=== PATIENT | female | born 1960 | race Two or more races ===

== ENCOUNTER 2017-08-11 11:29 | Inpatient (IN) | payer MEDICAID ==
[~2017-08-11] VITALS: Ht 157.5 cm; Wt 65.8 kg
[2017-08-11 12:00] VITALS: BP 207/63
[2017-08-11] MEDS ORDERED: Morphine Sulfate 4mg/ml Inj IVP ONE (12:00)
[2017-08-11 12:04] LABS: BASOPHILS % (AUTO) 1.3 % (0.0-2.0); EOSINOPHILS % (AUTO) 2.7 % (0.0-3.0); HEMATOCRIT 45.9 % (37.0-47.0); LYMPHOCYTES % (AUTO) 31.1 % (20.0-45.0); MEAN CORPUSCULAR VOLUME 92 FL (80-99); MONOCYTES % (AUTO) 5.5 % (1.0-10.0); NEUTROPHILS % (AUTO) 59.4 % (45.0-75.0); PLATELET COUNT 276 K/UL (150-450); RED BLOOD COUNT 4.97 M/UL (4.20-5.40); RED CELL DISTRIBUTION WIDTH 11.7 % (11.6-14.8); WHITE BLOOD COUNT 13.3 K/UL (4.8-10.8)
[2017-08-11 12:11] LABS: ANION GAP 10 mmol/L (5-15); BLOOD UREA NITROGEN 16 mg/dL (7-18); CALCIUM 9.6 MG/DL (8.5-10.1); CARBON DIOXIDE 26 MMOL/L (21-32); CHLORIDE 102 MMOL/L (98-107); CREATININE 0.6 MG/DL (0.55-1.30); POTASSIUM 2.9 MMOL/L (3.5-5.1); SODIUM 138 MMOL/L (136-145)
[2017-08-11 12:15] LABS: INR 0.9 (0.9-1.1)
[2017-08-11 12:17] LABS: ALANINE AMINOTRANSFERASE 30 U/L (12-78); ALBUMIN 3.9 G/DL (3.4-5.0); ALBUMIN/GLOBULIN RATIO 0.8 (1.0-2.7); ALKALINE PHOSPHATASE 115 U/L (46-116); ASPARTATE AMINO TRANSFERASE 23 U/L (15-37); BILIRUBIN,TOTAL 0.3 MG/DL (0.2-1.0)
[2017-08-11 13:00] VITALS: BP 173/60
--- NOTE | 2017-08-11 13:12 | Diagnostic Imaging Report ---
Indication: Altered mental status Technique: Continuous helical CT scanning of the head was performed without intravenous contrast material. Axial and coronal 5 mm sections were generated. Radiation dose was minimized using automated exposure control Dose: Total Dose Length Product - DLP 1369.[address] Dose Index - CTDIvol(s) 70.38 mGy. Comparison: none Findings: The ventricular system is normal in size and configuration. There is no shift of midline structures. No abnormal extra-axial fluid collections are noted. There is no evidence of intracerebral bleeding. No other abnormal high or low density areas are noted within the brain. Impression: Normal CT scan of the head without contrast material. The CT scanner at [facility] is accredited by the [employer] and the scans are performed using protocols designed to limit radiation exposure to as low as reasonably achievable to attain images of sufficient resolution adequate for diagnostic evaluation.
[2017-08-11 13:25] LABS: APPEARANCE,URINE CLEAR; BILIRUBIN, URINE NEGATIVE (NEGATIVE); COLOR,URINE PALE YELLOW; GLUCOSE, URINE (UA) 4+ (NEGATIVE); KETONES,URINE 2+ (NEGATIVE); LEUKOCYTE ESTERASE ,URINE 1+ (NEGATIVE); NITRITE,URINE NEGATIVE (NEGATIVE); PH,URINE 7 (4.5-8.0); PROTEIN,URINE 2+ (NEGATIVE); UROBILINOGEN,URINE NORMAL MG/DL (0.0-1.0)
[2017-08-11 14:00] VITALS: BP 176/58
--- NOTE | 2017-08-11 14:43 | Diagnostic Imaging Report ---
Indication: Abdominal pain, nausea, vomiting Technique: Spiral acquisitions obtained through the abdomen and pelvis. No oral contrast utilized, per emergency room physician request No IV contrast utilized, per emergency room physician request.. Multiplanar reconstructions were generated. Total dose length product 965.95 mGycm. CTDIvol(s) 19.07 mGy. Dose reduction achieved using automated exposure control Comparison: None Findings: There were a few colonic diverticula. No evidence of diverticulitis. The appendix is normal. No small bowel distention. No free or loculated intraperitoneal air or fluid is evident. The distal esophagus, stomach, duodenum are unremarkable. Lack of IV contrast limits assessment of the solid organs. The liver, gallbladder, bile ducts, pancreas, spleen, adrenals are unremarkable. There is mild stranding of the bilateral perinephric fat, fairly symmetrical. No renal or ureteral calculi, hydronephrosis, or hydroureter. No retroperitoneal or mesenteric mass or adenopathy. No pelvic mass or adenopathy. Uterus and adnexal structures appear unremarkable. The included lung bases demonstrate posterior atelectatic changes and possible mild bronchiectasis and interstitial septal thickening. The heart is mildly enlarged. The bones demonstrate degenerative spondylosis changes. Impression: Limited exam, due to lack of oral and IV contrast administration No definite acute process Minimal bilateral basilar pulmonary atelectatic changes, possible mild bronchiectasis and interstitial septal thickening Mild cardiomegaly Degenerative spondylosis incidentally noted The CT scanner at [facility] is accredited by the [employer] and the scans are performed using protocols designed to limit radiation exposure to as low as reasonably achievable to attain images of sufficient resolution adequate for diagnostic evaluation.
[2017-08-11] MEDS ORDERED: FORTAMET500 MG PO (15:05)
[2017-08-11] MEDS ORDERED: GLIPIZIDE10 MG PO (15:05)
[2017-08-11] MEDS ORDERED: BENAZEPRIL HCL5 MG ORAL (15:05)
[2017-08-11] MEDS ORDERED: Labetalol 5mg/ml 20ml vial IV ONE (15:15)
[2017-08-11 15:30] VITALS: BP 158/55
[2017-08-11 16:30] VITALS: BP 162/81
--- NOTE | 2017-08-11 16:44 | Emergency Room Report ---
History of Present Illness General Chief Complaint: Nausea Source: Patient Present Illness HPI Patient presents to the emergency department today complaining of nausea vomiting and dizziness. Patient states that she developed acute onset of dizziness associate nausea vomiting and epigastric discomfort. She denies any fever or chest pain shortness of breath. Symptoms were noted to be highly severe. Patient family: I will wanted patient to write for further evaluation. On arrival patient was actively vomiting. Patient appears weak and since not a very good historian she is very sleepy.No other modifying factors. No other associated signs and symptoms. No other complaints were noted. Allergies: Coded Allergies: No Known Allergies (Unverified , 08/11/17) Patient History Past Medical History: DM, HTN, CAD Past Surgical History: none Pertinent Family History: none Social History: Denies: smoking, alcohol use, drug use Reviewed Nursing Documentation: PMH: Agreed; PSxH: Agreed Nursing Documentation-PMH Past Medical History: No History, Except For Hx Cardiac Problems: Yes - high cholesterol, [place] Hx Hypertension: Yes Hx Diabetes: Yes Review of Systems All Other Systems: negative except mentioned in HPI Physical Exam Vital Signs Date Time Temp Pulse Resp B/P (MAP) Pulse Ox O2 Delivery O2 Flow Rate FiO2 08/11/17 11:05 98.4 69 24 156/116 99 Room Air 98.4 Sp02 EP Interpretation: reviewed, normal General Appearance: normal inspection, well appearing, no apparent distress, alert Head: atraumatic Eyes: bilateral eye normal inspection ENT: normal ENT inspection, hearing grossly normal, normal voice Neck: normal inspection, full range of motion, supple, no bony tend Respiratory: normal inspection, lungs clear, normal breath sounds, no respiratory distress, no retraction, no wheezing Cardiovascular #1: regular rate, rhythm, no edema Gastrointestinal: normal inspection, normal bowel sounds, non tender, soft, no guarding, no hernia Genitourinary: no CVA tenderness Musculoskeletal: normal inspection, back normal, normal range of motion Neurologic: normal inspection, alert, responsive, speech normal Psychiatric: normal inspection, judgement/insight normal, mood/affect normal Skin: normal inspection, normal color, no rash Medical Decision Making Diagnostic Impression: Primary Impression: Vertigo Additional Impressions: Intractable vomiting Intractable abdominal pain ER Course Patient presents to the emergency department today complaining of abdominal pain. Differential considerations include acute pancreatitis, cholecystitis, gastritis, hepatitis, appendicitis just to name a few. Patient's laboratory work up was negative. Patient also complained of intense vertigo. Differential considerations include vertigo, electrolyte abnormality, CVA just to name a few.Given the severity of the patient's presentation I felt this is a highly complex patient. This patient required extensive workup. Patient's laboratory workup was negative. Head CT and abdominal CT were both negative. Patient was given fluids and nausea medication and meclizine. Patient remained vertiginous and wasn't able to ambulate. Therefore felt the patient required admission to the hospital. Case was discussed with Dr. Raul Shah for admission. Labs Test 08/11/17 11:50 08/11/17 13:10 White Blood Count 13.3 K/UL (4.8-10.8) Red Blood Count 4.97 M/UL (4.20-5.40) Hemoglobin 16.0 G/DL (12.0-16.0) Hematocrit 45.9 % (37.0-47.0) Mean Corpuscular Volume 92 FL (80-99) Mean Corpuscular Hemoglobin 32.2 PG (27.0-31.0) Mean Corpuscular Hemoglobin Concent 34.8 G/DL (32.0-36.0) Red Cell Distribution Width 11.7 % (11.6-14.8) Platelet Count 276 K/UL (150-450) Mean Platelet Volume 6.3 FL (6.5-10.1) Neutrophils (%) (Auto) 59.4 % (45.0-75.0) Lymphocytes (%) (Auto) 31.1 % (20.0-45.0) Monocytes (%) (Auto) 5.5 % (1.0-10.0) Eosinophils (%) (Auto) 2.7 % (0.0-3.0) Basophils (%) (Auto) 1.3 % (0.0-2.0) Prothrombin Time 9.8 SEC (9.30-11.50) Prothromb Time International Ratio 0.9 (0.9-1.1) Activated Partial Thromboplast Time 25 SEC (23-33) Sodium Level 138 MMOL/L (136-145) Potassium Level 2.9 MMOL/L (3.5-5.1) Chloride Level 102 MMOL/L (98-107) Carbon Dioxide Level 26 MMOL/L (21-32) Anion Gap 10 mmol/L (5-15) Blood Urea Nitrogen 16 mg/dL (7-18) Creatinine 0.6 MG/DL (0.55-1.30) Estimat Glomerular Filtration Rate > 60 mL/min (>60) Glucose Level 316 MG/DL (74-106) Calcium Level 9.6 MG/DL (8.5-10.1) Total Bilirubin 0.3 MG/DL (0.2-1.0) Aspartate Amino Transf (AST/SGOT) 23 U/L (15-37) Alanine Aminotransferase (ALT/SGPT) 30 U/L (12-78) Alkaline Phosphatase 115 U/L (46-116) Troponin I 0.000 ng/mL (0.000-0.056) Total Protein 8.5 G/DL (6.4-8.2) Albumin 3.9 G/DL (3.4-5.0) Globulin 4.6 g/dL Albumin/Globulin Ratio 0.8 (1.0-2.7) Lipase 73 U/L (73-393) Urine Color Pale yellow Urine Appearance Clear Urine pH 7 (4.5-8.0) Urine Specific [place] 1.010 (1.005-1.035) Urine Protein 2+ (NEGATIVE) Urine Glucose (UA) 4+ (NEGATIVE) Urine Ketones 2+ (NEGATIVE) Urine Occult Blood Negative (NEGATIVE) Urine Nitrite Negative (NEGATIVE) Urine Bilirubin Negative (NEGATIVE) Urine Urobilinogen Normal MG/DL (0.0-1.0) Urine Leukocyte Esterase 1+ (NEGATIVE) Urine RBC 0-2 /HPF (0 - 2) Urine WBC 2-4 /HPF (0 - 2) Urine Squamous Epithelial Cells Few /LPF (NONE/OCC) Urine Bacteria Occasional /HPF (NONE) CT/MRI/US Diagnostic Results CT/MRI/US Diagnostic Results : Imaging Test Ordered: CT head: Negative, CT abdomen and pelvis: Negative Last Vital Signs Date Time Temp Pulse Resp B/P (MAP) Pulse Ox O2 Delivery O2 Flow Rate FiO2 08/11/17 16:30 97.5 83 16 162/81 95 Room Air 97.5 Status: unchanged Disposition: ADMITTED INPATIENT Condition: Serious Referrals: NOT CHOSEN IPA/,REFERRING (PCP) STEW RUSH M.D. Aug 11, 2017 16:44
[2017-08-11] MEDS ORDERED: D5 1/2NS 1,000 ML IV SCH (17:02)
[2017-08-11] MEDS ORDERED: Promethazine HCl 12.5 MG in NS 55 ML IV PRN (17:15)
[2017-08-11] MEDS ORDERED: Morphine Sulfate 2mg/ml Inj IVP PRN (17:15)
[2017-08-11] MEDS ORDERED: Mylanta II UD 30ml ORAL PRN (17:15)
[2017-08-11] MEDS ORDERED: Miralax 17gm pkt ORAL PRN (17:15)
[2017-08-11] MEDS ORDERED: Nitroglycerin Subl 0.4mg tab SL PRN (17:15)
[2017-08-11] MEDS ORDERED: LORazepam Inj 2mg/ml 1ml IV PRN (17:15)
[2017-08-11] MEDS ORDERED: Promethazine HCl 25 MG in NS 55 ML IV PRN (17:30)
[2017-08-11] MEDS ORDERED: Morphine Sulfate 4mg/ml Inj IVP PRN (17:30)
[2017-08-11] MEDS: NS w/KCl 20mEq 1,000 ML IV SCH (17:40)
[2017-08-11] MEDS: NovoLOG Insulin Flexpen SUBQ SCH ×2 (17:42→21:22)
[2017-08-11 20:00] VITALS: BP 161/67
[2017-08-11] MEDS: Heparin 5000 units/ml inj SUBQ SCH (21:20)
[2017-08-12] VITALS (7 sets, daily range): BP systolic 136–186; BP diastolic 63–85
[2017-08-12 06:19] LABS: BASOPHILS % (AUTO) 1.4 % (0.0-2.0); EOSINOPHILS % (AUTO) 1.2 % (0.0-3.0); LYMPHOCYTES % (AUTO) 32.6 % (20.0-45.0); MEAN CORPUSCULAR VOLUME 92 FL (80-99); NEUTROPHILS % (AUTO) 57.9 % (45.0-75.0); PLATELET COUNT 270 K/UL (150-450); RED BLOOD COUNT 4.33 M/UL (4.20-5.40)
[2017-08-12] MEDS: NovoLOG Insulin Flexpen SUBQ SCH ×4 (06:27→21:03)
[2017-08-12] MEDS: NS w/KCl 20mEq 1,000 ML IV SCH ×2 (06:28→21:00)
[2017-08-12 06:30] LABS: PHOSPHORUS 3.9 MG/DL (2.5-4.9)
[2017-08-12 07:14] LABS: ALANINE AMINOTRANSFERASE 22 U/L (12-78); ALBUMIN 3.1 G/DL (3.4-5.0); ALBUMIN/GLOBULIN RATIO 0.8 (1.0-2.7); ALKALINE PHOSPHATASE 79 U/L (46-116); AMYLASE 24 U/L (25-115); ANION GAP 10 mmol/L (5-15); ASPARTATE AMINO TRANSFERASE 18 U/L (15-37); BILIRUBIN,TOTAL 0.4 MG/DL (0.2-1.0); BLOOD UREA NITROGEN 16 mg/dL (7-18); CALCIUM 8.3 MG/DL (8.5-10.1); CARBON DIOXIDE 26 MMOL/L (21-32); CHLORIDE 106 MMOL/L (98-107); CREATININE 0.5 MG/DL (0.55-1.30); POTASSIUM 3.6 MMOL/L (3.5-5.1); SODIUM 142 MMOL/L (136-145)
[2017-08-12] MEDS: Pantoprazole Inj IV SCH (08:26)
[2017-08-12] MEDS: Benazepril 10mg tab ORAL SCH (08:26)
[2017-08-12] MEDS: Heparin 5000 units/ml inj SUBQ SCH ×2 (08:27→21:02)
--- NOTE | 2017-08-12 10:08 | GI Initial Consult Note ---
History of Present Illness General Date patient seen: Aug 12, 2017 Time patient seen: 11:31 Reason for Hospitalization: Nausea Referring physician: KISHA MARTINEZ Reason for Consultation: N/V Present Illness HPI Patient presents to the emergency department today complaining of nausea vomiting and dizziness. Patient states that she developed acute onset of dizziness associate nausea vomiting and epigastric discomfort. She denies any fever or chest pain shortness of breath. Symptoms were noted to be highly severe. Patient family: I will wanted patient to write for further evaluation. On arrival patient was actively vomiting. Patient appears weak and since not a very good historian she is very sleepy.No other modifying factors. No other associated signs and symptoms. No other complaints were noted. GI consulted for N/V. Pt seen, awake A&Ox4 NAD with no active s/sx of N/V/D. C /o of epigastric pain, tender to palpation. All information obtained from medical records. Patient presents today with elevated glucose levels and electrolyte imbalance. No history of endoscopy/colonoscopy. CT AP and Head reviewed, negative. Home Meds Reported Medications Benazepril Hcl (BENAZEPRIL HCL) 5 Mg Tablet, 5 MG ORAL DAILY, TAB 08/11/17 Metformin Hcl (FORTAMET) 500 Mg Tab.er.24, 500 MG PO, TAB 08/11/17 Glipizide (GLIPIZIDE) 10 Mg Tablet, 10 MG PO, TAB 08/11/17 Med list reviewed/reconciled: Yes Allergies: Coded Allergies: No Known Allergies (Unverified , 08/11/17) Patient History History Provided By: Patient, Medical Record Pertinent Family History: diabetes Social History: Denies: smoking, alcohol use, drug use, other Review of Systems All Other Systems: negative except mentioned in HPI Physical Exam Vital Signs Date Time Temp Pulse Resp B/P (MAP) Pulse Ox O2 Delivery O2 Flow Rate FiO2 08/11/17 11:05 98.4 69 24 156/116 99 Room Air 98.4 Sp02 EP Interpretation: reviewed, normal Labs Laboratory Tests Test 08/11/17 11:50 08/11/17 13:10 08/12/17 05:40 White Blood Count 13.3 K/UL (4.8-10.8) H 10.0 K/UL (4.8-10.8) Red Blood Count 4.97 M/UL (4.20-5.40) 4.33 M/UL (4.20-5.40) Hemoglobin 16.0 G/DL (12.0-16.0) 14.0 G/DL (12.0-16.0) Hematocrit 45.9 % (37.0-47.0) 40.0 % (37.0-47.0) Mean Corpuscular Volume 92 FL (80-99) 92 FL (80-99) Mean Corpuscular Hemoglobin 32.2 PG (27.0-31.0) H 32.3 PG (27.0-31.0) H Mean Corpuscular Hemoglobin Concent 34.8 G/DL (32.0-36.0) 35.0 G/DL (32.0-36.0) Red Cell Distribution Width 11.7 % (11.6-14.8) 12.0 % (11.6-14.8) Platelet Count 276 K/UL (150-450) 270 K/UL (150-450) Mean Platelet Volume 6.3 FL (6.5-10.1) L 6.4 FL (6.5-10.1) L Neutrophils (%) (Auto) 59.4 % (45.0-75.0) 57.9 % (45.0-75.0) Lymphocytes (%) (Auto) 31.1 % (20.0-45.0) 32.6 % (20.0-45.0) Monocytes (%) (Auto) 5.5 % (1.0-10.0) 7.0 % (1.0-10.0) Eosinophils (%) (Auto) 2.7 % (0.0-3.0) 1.2 % (0.0-3.0) Basophils (%) (Auto) 1.3 % (0.0-2.0) 1.4 % (0.0-2.0) Prothrombin Time 9.8 SEC (9.30-11.50) Prothromb Time International Ratio 0.9 (0.9-1.1) Activated Partial Thromboplast Time 25 SEC (23-33) 25 SEC (23-33) Sodium Level 138 MMOL/L (136-145) 142 MMOL/L (136-145) Potassium Level 2.9 MMOL/L (3.5-5.1) L 3.6 MMOL/L (3.5-5.1) Chloride Level 102 MMOL/L (98-107) 106 MMOL/L (98-107) Carbon Dioxide Level 26 MMOL/L (21-32) 26 MMOL/L (21-32) Anion Gap 10 mmol/L (5-15) 10 mmol/L (5-15) Blood Urea Nitrogen 16 mg/dL (7-18) 16 mg/dL (7-18) Creatinine 0.6 MG/DL (0.55-1.30) 0.5 MG/DL (0.55-1.30) L Estimat Glomerular Filtration Rate > 60 mL/min (>60) > 60 mL/min (>60) Glucose Level 316 MG/DL (74-106) H 126 MG/DL (74-106) #H Calcium Level 9.6 MG/DL (8.5-10.1) 8.3 MG/DL (8.5-10.1) L Total Bilirubin 0.3 MG/DL (0.2-1.0) 0.4 MG/DL (0.2-1.0) Aspartate Amino Transf (AST/SGOT) 23 U/L (15-37) 18 U/L (15-37) Alanine Aminotransferase (ALT/SGPT) 30 U/L (12-78) 22 U/L (12-78) Alkaline Phosphatase 115 U/L (46-116) 79 U/L (46-116) Troponin I 0.000 ng/mL (0.000-0.056) Total Protein 8.5 G/DL (6.4-8.2) H 7.0 G/DL (6.4-8.2) Albumin 3.9 G/DL (3.4-5.0) 3.1 G/DL (3.4-5.0) L Globulin 4.6 g/dL 3.9 g/dL Albumin/Globulin Ratio 0.8 (1.0-2.7) L 0.8 (1.0-2.7) L Lipase 73 U/L (73-393) 46 U/L (73-393) L Urine Color Pale yellow Urine Appearance Clear Urine pH 7 (4.5-8.0) Urine Specific [place] 1.010 (1.005-1.035) Urine Protein 2+ (NEGATIVE) H Urine Glucose (UA) 4+ (NEGATIVE) H Urine Ketones 2+ (NEGATIVE) H Urine Occult Blood Negative (NEGATIVE) Urine Nitrite Negative (NEGATIVE) Urine Bilirubin Negative (NEGATIVE) Urine Urobilinogen Normal MG/DL (0.0-1.0) Urine Leukocyte Esterase 1+ (NEGATIVE) H Urine RBC 0-2 /HPF (0 - 2) Urine WBC 2-4 /HPF (0 - 2) Urine Squamous Epithelial Cells Few /LPF (NONE/OCC) Urine Bacteria Occasional /HPF (NONE) Phosphorus Level 3.9 MG/DL (2.5-4.9) Magnesium Level 1.7 MG/DL (1.8-2.4) L Amylase Level 24 U/L (25-115) L General Appearance: well appearing, no apparent distress, alert, obese Head: normocephalic EENT: PERRL/EOMI, normal ENT inspection Neck: supple Respiratory: normal breath sounds, no respiratory distress Cardiovascular: normal rate Gastrointestinal: normal inspection, non tender, soft, normal bowel sounds, non -distended Rectal: deferred Genitourinary: no CVA tenderness Musculoskeletal: normal inspection, back normal Neurologic: normal inspection, alert, oriented x3, responsive Psychiatric: normal inspection, judgement/insight normal, memory normal Skin: normal inspection, normal color, no rash, warm/dry, palpation normal, well hydrated Lymphatic: normal inspection, no adenopathy Current Medications Current Medications Medications (Trade) Dose Ordered Sig/David Route PRN Reason Start Time Stop Time Status Last Admin Dose Admin Acetaminophen (Tylenol) 650 mg Q6H PRN ORAL Mild Pain/Temp > 100.5 08/11/17 16:30 09/10/17 16:29 Al Hydroxide/Mg Hydroxide (Mylanta II) 30 ml Q6H PRN ORAL dyspepsia 08/11/17 17:15 09/10/17 17:14 Benazepril HCl (Lotensin) 5 mg DAILY ORAL 08/12/17 09:00 09/11/17 08:59 08/12/17 08:26 Dextrose (Dextrose 50%) 25 ml STAT PRN IV Hypoglycemia btwn 60-69 08/11/17 16:30 09/10/17 16:29 Dextrose (Dextrose 50%) 50 ml STAT PRN IV Hypoglycemia BS<60 08/11/17 16:30 09/10/17 16:29 Diphenhydramine HCl (Benadryl) 25 mg Q6H PRN ORAL Itching/Pruritis 08/11/17 17:15 09/10/17 17:14 Heparin Sodium (Porcine) (Heparin 5000 units/ml) 5,000 units EVERY 12 HOURS SUBQ 08/11/17 21:00 09/10/17 20:59 08/12/17 08:27 Insulin Aspart (NovoLOG) BEFORE MEALS AND HS SUBQ 08/11/17 17:00 09/10/17 16:59 08/12/17 06:27 Lorazepam (Ativan 2mg/ml 1ml) 1 mg Q4H PRN IV agitation 08/11/17 17:15 08/18/17 17:14 Morphine Sulfate (Morphine Sulfate) 2 mg Q4H PRN IVP severe Pain (Pain Scale 7-10) 08/11/17 17:30 08/18/17 17:14 08/11/17 17:40 Nitroglycerin (Ntg) 0.4 mg Q5M X 3 DOSES PRN SL Prn Chest Pain 08/11/17 17:15 09/10/17 17:14 Ondansetron HCl (Zofran) 4 mg Q6H PRN IVP Nausea & Vomiting 08/11/17 17:15 09/10/17 17:14 08/12/17 06:35 Pantoprazole (Protonix) 40 mg DAILY IV 08/12/17 09:00 09/11/17 08:59 08/12/17 08:26 Polyethylene Glycol (Miralax) 17 gm HSPRN PRN ORAL Constipation 08/11/17 17:15 09/10/17 17:14 Promethazine HCl 25 mg/Sodium Chloride 56 ml @ 110 mls/hr Q6H PRN IV N/V UNRELIEVED BY IV ZOFRAN 08/11/17 17:30 09/10/17 17:29 Sodium Chloride 1,000 ml @ 75 mls/hr [id number] IV 08/11/17 17:30 09/10/17 17:29 08/12/17 06:28 Temazepam (Restoril) 15 mg HSPRN PRN ORAL Insomnia 08/11/17 17:15 08/18/17 17:14 GI: Plan Problems: (1) Intractable abdominal pain (2) Intractable vomiting (3) Vertigo Plan CT head and AP reviewed >> negative ?gastroparesis 2/2 DM >> check HgA1C pending abdominal U/S zofran prn, Phenergan for persistent vomiting consider meclizine if vertigo persists CLD, adv as tolerated electrolyte replacement ppi fu labs outpatient GI procedures Discussed with Dr. Thompson. Thank you for this patient referral, we will follow. Estefani Douglas N.P. Aug 12, 2017 10:08
[2017-08-12] MEDS ORDERED: Meclizine 25mg tab ORAL PRN (11:30)
--- NOTE | 2017-08-12 14:44 | Diagnostic Imaging Report ---
Indication: Nausea, vomiting, epigastric pain Technique: Hunter-scale and duplex images of the upper abdomen were obtained Comparison: none Findings: Gallbladder is unremarkable, without stones, wall thickening, nor pericholecystic fluid. Sonographic Dhillon's sign is negative. Common bile duct measures 5 mm in diameter. No intrahepatic biliary ductal dilatation. Liver demonstrates normal echogenicity, no focal abnormality. Portal vein and hepatic veins are patent. Pancreas is unremarkable. Spleen is unremarkable. Left kidney measures 10.7 cm in length. Right kidney measures 10 cm length. Both kidneys demonstrate normal echogenicity. There is no hydronephrosis. There are bilateral renal cysts . Non-aneurysmal abdominal aorta . Impression: No acute or significant abnormality. Negative for gallstones or dilated ducts Incidental finding of bilateral renal cysts
--- NOTE | 2017-08-12 18:34 | History & Physical ---
History and Physical History & Physicial Dictated for Int Med-Dr Shah no. [id number] BEATRIZ MONGE Aug 12, 2017 18:34
--- NOTE | 2017-08-12 23:15 | History and Physical Report ---
DATE OF ADMISSION: 08/12/2017 CHIEF COMPLAINT: The patient is a 56-year-old female, who presents with a chief complaint of dizziness, nausea, and vomiting. HISTORY OF PRESENT ILLNESS: The patient states she was cooking yesterday. The patient began to feel extremely dizzy. The patient had intractable nausea and vomiting. The patient was also experiencing epigastric pain. The patient presented to [place] emergency room. The patient was admitted for intractable nausea and vomiting. PAST MEDICAL HISTORY: Significant for, 1. Type 2 diabetes. 2. Hypertension. PAST SURGICAL HISTORY: Significant for section. CURRENT MEDICATIONS: 1. Benazepril 10 mg one tablet p.o. daily. 2. Glipizide 10 mg p.o. daily. 3. Metformin 500 mg p.o. twice daily. ALLERGIES: No known drug allergies. 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 The patient denies tobacco or alcohol use. REVIEW OF SYSTEMS: CONSTITUTIONAL: The patient denies weight loss or weight gain. The patient denies fevers or chills. HEENT: The patient denies ear or throat pain. The patient denies headache. CARDIOVASCULAR: The patient denies palpitations or chest pain. CHEST: The patient denies wheeze or shortness of breath. ABDOMEN: The patient complains of epigastric pain. The patient complains of nausea with vomiting. The patient denies diarrhea or constipation. GENITOURINARY: The patient denies dysuria or increased frequency of urination. NEUROMUSCULAR: The patient denies seizures or generalized weakness. PHYSICAL EXAMINATION: VITAL SIGNS: Temperature 98.2, respirations 19, pulse 84, and blood pressure 146/63. GENERAL: The patient is a well-developed and well-nourished female, in no apparent distress. HEENT: Eyes, pupils equal and responsive to light and accommodation. Extraocular movements are intact. NECK: Supple without lymphadenopathy. CHEST: Lungs are clear to auscultation bilaterally without wheezes or rales. CARDIOVASCULAR: Regular rhythm and rate. S1 and S2 are normal without murmurs, rubs, or gallops. ABDOMEN: Soft, nontender, and nondistended. Positive bowel sounds. No evidence of hepatosplenomegaly. Currently, no rebound or guarding noted. EXTREMITIES: Negative for clubbing, cyanosis, or edema. RECTAL/GENITAL: Refused. NEUROLOGIC: Cranial nerves II through XII are grossly intact without focal deficits. Motor strength is 5/5 bilaterally. Deep tendon reflexes are 2+ plantar. LABORATORY STUDIES: WBC 13.3, hemoglobin 16.3, hematocrit 45.9, and platelets 276,000. Sodium 138, potassium decreased to 2.9, chloride 102, CO2 26, BUN 16, creatinine 0.6, and glucose 316. A CT scan of the brain was reported as no acute disease. A CT scan of the abdomen was reported as no acute disease. ASSESSMENT: This is a 56-year-old female. 1. Epigastric pain. 2. Nausea with vomiting. 3. Vertigo. 4. Diabetes type 2. 5. Hypertension. 6. Hypokalemia. 7. Leukocytosis. TREATMENT: 1. Epigastric pain. A Gastroenterology consultation has been obtained with Dr. Evert Thompson. We will follow recommendations of Gastroenterology. 2. Nausea with vomiting. This has resolved with Zofran. As above, a Gastroenterology consultation has been obtained with Dr. Evert Thompson. 3. Vertigo. This is probably secondary to nausea and vomiting as above. 4. Diabetes type 2. The patient has been started on a NovoLog sliding scale. 5. Hypertension. Continue benazepril as above. Clonidine will be added p.r.n. for systolic greater than 150 and diastolic greater than 100. 6. Hypokalemia. The patient has received potassium supplementation in the emergency room. 7. Leukocytosis. Romain Cat M.D. DR: OLGA JOB#: [id number] CC:
[2017-08-13] VITALS: BP 148/84
[2017-08-13 04:59] LABS: BASOPHILS % (AUTO) 1.7 % (0.0-2.0); EOSINOPHILS % (AUTO) 2.5 % (0.0-3.0); HEMATOCRIT 39.2 % (37.0-47.0); HEMOGLOBIN 13.5 G/DL (12.0-16.0); MEAN CORPUSCULAR VOLUME 93 FL (80-99); MONOCYTES % (AUTO) 6.8 % (1.0-10.0); PLATELET COUNT 256 K/UL (150-450); RED BLOOD COUNT 4.23 M/UL (4.20-5.40); WHITE BLOOD COUNT 7.5 K/UL (4.8-10.8)
[2017-08-13 05:11] LABS: ANION GAP 7 mmol/L (5-15); BLOOD UREA NITROGEN 9 mg/dL (7-18); CALCIUM 8.4 MG/DL (8.5-10.1); CARBON DIOXIDE 26 MMOL/L (21-32); CHLORIDE 108 MMOL/L (98-107); CREATININE 0.5 MG/DL (0.55-1.30); POTASSIUM 3.6 MMOL/L (3.5-5.1); SODIUM 141 MMOL/L (136-145)
[2017-08-13] MEDS: NovoLOG Insulin Flexpen SUBQ SCH ×2 (05:53→12:07)
[2017-08-13 08:43] VITALS: BP_SYST 154; BP_SYST 164; BP_DIAS 83
[2017-08-13] MEDS: Pantoprazole Inj IV SCH (09:04)
[2017-08-13] MEDS: NS w/KCl 20mEq 1,000 ML IV SCH (09:05)
[2017-08-13] MEDS: Benazepril 10mg tab ORAL SCH (09:06)
[2017-08-13] MEDS: Heparin 5000 units/ml inj SUBQ SCH (09:06)
--- NOTE | 2017-08-13 09:49 | GI Progress Note ---
Assessment/Plan Problems: (1) Gastroparesis ICD Codes: K31.84 - Gastroparesis SNOMED: 798608172 (2) Intractable abdominal pain ICD Codes: R10.9 - Unspecified abdominal pain SNOMED: 19822035, 471470613 (3) Intractable vomiting ICD Codes: R11.10 - Vomiting, unspecified SNOMED: 288930187, 517985396 (4) Vertigo ICD Codes: R42 - Dizziness and giddiness SNOMED: 208204082, 384804604 Status: doing well, stable Status Narrative Discussed with Dr. Thompson. Assessment/Plan CT head and AP reviewed >> negative ?gastroparesis 2/2 DM >> check HgA1C 10.2 pending abdominal U/S >> negative adv to ADA diet, okay for DC per GI standpoint if tolerates lunch DM management zofran prn, Phenergan for persistent vomiting consider meclizine if vertigo persists electrolyte replacement ppi fu labs outpatient GI procedures Subjective Subjective tolerated FLD feels normal wants to be discharged Objective Last 24 Hour Vital Signs Date Time Temp Pulse Resp B/P (MAP) Pulse Ox O2 Delivery O2 Flow Rate FiO2 08/13/17 09:06 154/83 08/13/17 08:43 98.9 69 19 154/83 96 Room Air 98.9 08/13/17 04:22 180/82 08/13/17 04:00 98.0 66 19 95 Room Air 98.0 08/13/17 00:00 98.4 72 19 148/84 96 Room Air 98.4 08/12/17 23:01 141/74 08/12/17 20:00 Room Air 08/12/17 20:00 99.1 69 19 186/85 96 Room Air 99.1 08/12/17 19:04 186/85 08/12/17 16:00 99.5 71 21 166/74 99 Room Air 99.5 08/12/17 11:56 99.5 70 20 136/69 95 Room Air 99.5 Intake and Output 08/12/17 08/13/17 19:00 07:00 Intake Total 1320 ml 150 ml Balance 1320 ml 150 ml Intake Oral 720 ml IV Total 600 ml 150 ml # Voids 1 1 Laboratory Tests Test 08/13/17 04:05 White Blood Count 7.5 K/UL (4.8-10.8) Red Blood Count 4.23 M/UL (4.20-5.40) Hemoglobin 13.5 G/DL (12.0-16.0) Hematocrit 39.2 % (37.0-47.0) Mean Corpuscular Volume 93 FL (80-99) Mean Corpuscular Hemoglobin 31.9 PG (27.0-31.0) H Mean Corpuscular Hemoglobin Concent 34.4 G/DL (32.0-36.0) Red Cell Distribution Width 12.0 % (11.6-14.8) Platelet Count 256 K/UL (150-450) Mean Platelet Volume 6.3 FL (6.5-10.1) L Neutrophils (%) (Auto) 40.0 % (45.0-75.0) L Lymphocytes (%) (Auto) 49.0 % (20.0-45.0) H Monocytes (%) (Auto) 6.8 % (1.0-10.0) Eosinophils (%) (Auto) 2.5 % (0.0-3.0) Basophils (%) (Auto) 1.7 % (0.0-2.0) Sodium Level 141 MMOL/L (136-145) Potassium Level 3.6 MMOL/L (3.5-5.1) Chloride Level 108 MMOL/L (98-107) H Carbon Dioxide Level 26 MMOL/L (21-32) Anion Gap 7 mmol/L (5-15) Blood Urea Nitrogen 9 mg/dL (7-18) Creatinine 0.5 MG/DL (0.55-1.30) L Estimat Glomerular Filtration Rate > 60 mL/min (>60) Glucose Level 126 MG/DL (74-106) H Hemoglobin A1c 10.2 % (4.3-6.0) H Calcium Level 8.4 MG/DL (8.5-10.1) L Magnesium Level 1.8 MG/DL (1.8-2.4) Height (Feet): 5 Height (Inches): 2.00 Weight (Pounds): 145 General Appearance: WD/WN, no apparent distress, alert Cardiovascular: normal rate Respiratory/Chest: normal breath sounds, no respiratory distress Abdominal Exam: normal bowel sounds, non tender, soft Extremities: normal range of motion, non-tender Douglas,Estefani Valentin N.P. Aug 13, 2017 09:49
[2017-08-13 12:00] VITALS: BP 157/79
--- NOTE | 2017-08-13 18:01 | Internal Med Progress Note ---
Subjective Date of Service: Aug 13, 2017 Physician Name Romain Monge Attending Physician Raul Shah MD Allergies: Coded Allergies: No Known Allergies (Unverified , 08/11/17) ROS Limited/Unobtainable: No Constitutional: Reports: no symptoms HEENT: Reports: no symptoms Cardiovascular: Reports: no symptoms Respiratory: Reports: no symptoms Gastrointestinal/Abdominal: Reports: no symptoms Genitourinary: Reports: no symptoms Neurologic/Psychiatric: Reports: no symptoms Subjective 56 YO F admitted with nausea and vomiting. Cover for Int Med - Dr Shah. Tolerating diet Objective Last Vital Signs Date Time Temp Pulse Resp B/P (MAP) Pulse Ox O2 Delivery O2 Flow Rate FiO2 08/13/17 12:00 98.0 61 20 157/79 96 98.0 08/13/17 08:43 Room Air General Appearance: WD/WN, no apparent distress, alert EENT: PERRL/EOMI, normal ENT inspection, TMs normal Neck: non-tender, normal alignment, supple Cardiovascular: normal peripheral pulses, normal rate, regular rhythm, no gallop/murmur, no JVD Respiratory/Chest: chest wall non-tender, lungs clear, normal breath sounds, no respiratory distress, no accessory muscle use Abdomen: decreased bowel sounds, guarding, tender Extremities: normal range of motion, non-tender Edema: trace edema 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, no motor/sensory deficits Skin: normal pigmentation, warm/dry Laboratory Tests Test 08/13/17 04:05 White Blood Count 7.5 K/UL (4.8-10.8) Red Blood Count 4.23 M/UL (4.20-5.40) Hemoglobin 13.5 G/DL (12.0-16.0) Hematocrit 39.2 % (37.0-47.0) Mean Corpuscular Volume 93 FL (80-99) Mean Corpuscular Hemoglobin 31.9 PG (27.0-31.0) H Mean Corpuscular Hemoglobin Concent 34.4 G/DL (32.0-36.0) Red Cell Distribution Width 12.0 % (11.6-14.8) Platelet Count 256 K/UL (150-450) Mean Platelet Volume 6.3 FL (6.5-10.1) L Neutrophils (%) (Auto) 40.0 % (45.0-75.0) L Lymphocytes (%) (Auto) 49.0 % (20.0-45.0) H Monocytes (%) (Auto) 6.8 % (1.0-10.0) Eosinophils (%) (Auto) 2.5 % (0.0-3.0) Basophils (%) (Auto) 1.7 % (0.0-2.0) Sodium Level 141 MMOL/L (136-145) Potassium Level 3.6 MMOL/L (3.5-5.1) Chloride Level 108 MMOL/L (98-107) H Carbon Dioxide Level 26 MMOL/L (21-32) Anion Gap 7 mmol/L (5-15) Blood Urea Nitrogen 9 mg/dL (7-18) Creatinine 0.5 MG/DL (0.55-1.30) L Estimat Glomerular Filtration Rate > 60 mL/min (>60) Glucose Level 126 MG/DL (74-106) H Hemoglobin A1c 10.2 % (4.3-6.0) H Calcium Level 8.4 MG/DL (8.5-10.1) L Magnesium Level 1.8 MG/DL (1.8-2.4) Intake and Output 08/12/17 08/13/17 19:00 07:00 Intake Total 1320 ml 150 ml Balance 1320 ml 150 ml Intake Oral 720 ml IV Total 600 ml 150 ml # Voids 1 1 Assessment/Plan Problem List: (1) HTN (hypertension) Assessment & Plan: Continue benazepril and clonidine (2) Hypokalemia (3) Leukocytosis (4) Nausea & vomiting Assessment & Plan: Resolved (5) Gastroenteritis Assessment & Plan: See GI note (6) Vertigo (7) Diabetes mellitus type II, uncontrolled Assessment & Plan: Continue novolog sliding scale (8) Gastroparesis Assessment & Plan: see GI note. Status: stable, tolerating diet ROMAIN MONGE Aug 13, 2017 18:01
--- NOTE | 2017-08-17 13:50 | Discharge Summary ---
Discharge Summary Discharge Summary Discharge Summary DATE OF ADMISSION: 08/11/2017 DATE OF DISCHARGE: 08/13/2017 CONSULTANTS: Dr. Evert Thompson BRIEF HOSPITAL COURSE: Patient is a 56-year-old female, presented with chief complaint of dizziness, nausea, and vomiting. Symptoms started a day prior to admission, while she was cooking and felt extremely dizzy. She had intractable nausea and vomiting. She also had epigastric pain. She has medical history significant for diabetes and hypertension. On evaluation at ED, WBC was 13, hemoglobin 16, hematocrit 45. Potassium was low 2.9, chloride 102, BUN 16, creatinine 0.6. She had a CAT scan of the brain that was reported as no acute disease. CAT scan of the abdomen was reported as no acute disease. She was then admitted for evaluation of epigastric pain with nausea and vomiting. She was given Zofran. Blood sugars were monitored and was started on NovoLog sliding scale. She was continued on her antihypertensives. She was given potassium supplements. She was seen by gastroenterology. She was given symptomatic treatment. Abdominal ultrasound was negative for gallstones or dilated ducts. No acute significant abnormality. Diet was advanced. Patient probably has gastroparesis secondary to diabetes mellitus. A1c was elevated to 10. She was tolerating diet she was eventually discharged home. FINAL DIAGNOSES: Nausea and vomiting possibly secondary to gastroparesis Vertigo Hypokalemia Hypertension Leukocytosis possibly reactive Diabetes mellitus out of control DISPOSITION: Patient was discharged home DISCHARGE MEDICATIONS: Refer to Discharge Medication List. DISCHARGE INSTRUCTIONS: Follow up with PCP in a week. Recommended strict glucose control. I have been assigned to dictate discharge summary on this account, and I was not involved in the patient's management. Radha Sherwood NP Aug 17, 2017 13:50
== END 2017-08-13 16:38 | disposition home or self-care (01) | DRG 48 ==
LOC: EDBD 11:29 → EMR 11:50 → 4E 14:25 → EDBEDREQ 14:36
DX: E11.43 Type 2 diabetes mellitus with diabetic autonomic (poly)neuropathy (principal); E11.65 Type 2 diabetes mellitus with hyperglycemia; I10 Essential (primary) hypertension; K31.84 Gastroparesis; E87.6 Hypokalemia; R42 Dizziness and giddiness; R11.2 Nausea with vomiting, unspecified; Z79.84 Long term (current) use of oral hypoglycemic drugs
CPT/HCPCS: 36415; 70450; 74176; 76700; 80048; 80053; 81003; 82150; 82962; 83036; 83690; 83735; 84100; 84484; 85025; 85610; 85730; 99285; J1815; J2405

== ENCOUNTER 2017-10-05 09:11 | Emergency (ER) | payer MEDICAID ==
[~2017-10-05] VITALS: Ht 157.5 cm; Wt 68.0 kg
--- NOTE | 2017-10-05 09:10 | Emergency Room Report ---
History of Present Illness General Chief Complaint: Abdominal Pain Source: Patient, Friend, EMS Present Illness HPI 56-year-old female brought in by EMS with friend for "vertigo for a long time" now associated with severe vomiting, and abdominal pain. Has been taking meclizine without much improvement. Patient and friend deny that she's ever had brain CT or MRI to evaluate for cause of vertigo. They state that her doctor wanted her to do that but they haven't been able to do it yet. No associated fever, chills, diarrhea, foreign travel, sick contacts. History of diabetes, high blood pressure, high cholesterol. However per EMR, patient had negative CT head, abdomen and negative Abd US Abd pain thought d/t gastroparesis 2nd to diabetes Allergies: Coded Allergies: No Known Allergies (Unverified , 08/11/17) Patient History Past Medical History: DM, HTN Past Surgical History: none Pertinent Family History: none Social History: Denies: smoking, alcohol use, drug use Last Menstrual Period: NA Now: No Immunizations: UTD Reviewed Nursing Documentation: PMH: Agreed; PSxH: Agreed Nursing Documentation-PMH Past Medical History: No History, Except For Hx Hypertension: Yes Hx Diabetes: Yes Review of Systems All Other Systems: negative except mentioned in HPI Physical Exam Vital Signs Date Time Temp Pulse Resp B/P (MAP) Pulse Ox O2 Delivery O2 Flow Rate FiO2 10/05/17 08:56 98.1 65 16 182/82 99 Room Air 98.1 Sp02 EP Interpretation: reviewed, normal General Appearance: normal inspection, well appearing, no apparent distress, alert, GCS 15, non-toxic, mild distress, other - Eyes squeezed shut, patient crying Head: normocephalic, atraumatic Eyes: bilateral eye PERRL, bilateral eye EOMI, bilateral eye other - Mild horizontal nystagmus ENT: normal ENT inspection, hearing grossly normal, normal pharynx, no angioedema, normal voice, TMs + canals normal, uvula midline, moist mucus membranes Neck: normal inspection, full range of motion, supple, thyroid normal, no meningismus, no bony tend Respiratory: normal inspection, lungs clear, normal breath sounds, no rhonchi, no respiratory distress, no retraction, no accessory muscle use, no wheezing, speaking full sentences Cardiovascular #1: regular rate, rhythm, no edema, no JVD, normal capillary refill Gastrointestinal: normal inspection, normal bowel sounds, soft, no mass, no peritonitis, non-distended, no guarding, no hernia, no pulsatile mass, other - Generalized tpp throughout abdomen Genitourinary: no CVA tenderness Musculoskeletal: normal inspection, back normal, normal range of motion, no calf tenderness, pelvis stable, Rui's Sign negative Neurologic: normal inspection, alert, oriented x3, responsive, 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, motor strength/tone normal, cerebellar normal, normal gait, speech normal, other - No cerebrellar signs Psychiatric: normal inspection, judgement/insight normal, mood/affect normal, no suicidal/homicidal ideation, no delusions Skin: normal inspection, normal color, no rash Lymphatic: normal inspection, no adenopathy Medical Decision Making Diagnostic Impression: Primary Impression: Headache Qualified Codes: R51 - Headache Additional Impressions: Dizziness HTN (hypertension) Qualified Codes: I10 - Essential (primary) hypertension Abdominal pain Qualified Codes: R10.84 - Generalized abdominal pain ER Course VSS, afebrile Patient feels better after Meds, IVF Tolerating PO in ER 1051am: On re-exam, abd is non-focal Dizziness resolved Combination of known BPPV and gastroparesis Low suspicion for cerebellar infarct given known BPPV, no cerebellar focal deficits on exam today, no ataxia Low suspicion for space-occupying lesion as cause of dizziness and headache given normal head CT approximately 2 months ago Abdominal exam likely due to known gastroparesis Will recommend patient follow up with ENT for BPPV\\dizziness as patient has not seen specialists for this yet Recommend continue meclizine, Ativan as needed for breakthrough dizziness ER course: Patient has remained stable during ED stay. Disposition: Patient is to be discharged to home. Prescriptions given are ativan Patient is instructed to follow up with their primary care doctor within 5 days. Patient is instructed to follow up with ENT specialist within 3 days. Strict return precautions discussed with patient such as fever, chills, worsening/severe pain, nausea, vomiting, which may indicate severe illness. Patient verbalizes understanding and agrees with plan. Please note that this Emergency Department Report was dictated using [employer] sorter technology software, occasionally this can lead to erroneous entry secondary to interpretation by the dictation equipment EKG Diagnostic Results Rate: normal Rhythm: NSR ST Segments: no acute changes ASA given to the pt in ED: No Rhythm Strip Diag. Results EP Interpretation: yes Rate: 64 Rhythm: NSR, no PVC's, no ectopy Last Vital Signs Date Time Temp Pulse Resp B/P (MAP) Pulse Ox O2 Delivery O2 Flow Rate FiO2 10/05/17 08:56 98.1 65 16 182/82 99 Room Air 98.1 Status: improved Disposition: HOME, SELF-CARE JULISSA VALENCIA M.D. Oct 05, 2017 09:10
[~2017-10-05 09:11] MED LIST: BENAZEPRIL HCL5 MG ORAL; FORTAMET500 MG PO; GLIPIZIDE10 MG PO
[2017-10-05] MEDS ORDERED: LORazepam Inj 2mg/ml 1ml IV ONE (09:15)
[2017-10-05] MEDS ORDERED: Isovue-300 100ml vial INJ PRN (09:15)
[2017-10-05] MEDS ORDERED: Morphine Sulfate 4mg/ml Inj IVP ONE (09:15)
[2017-10-05] MEDS ORDERED: Morphine Sulfate 4mg/ml Inj ONE (09:19)
[2017-10-05] MEDS ORDERED: LORazepam Inj 2mg/ml 1ml ONE (09:35)
[2017-10-05 09:43] LABS: ANION GAP 14 mmol/L (5-15); BLOOD UREA NITROGEN 13 mg/dL (7-18); CALCIUM 9.5 MG/DL (8.5-10.1); CARBON DIOXIDE 21 MMOL/L (21-32); CHLORIDE 104 MMOL/L (98-107); CREATININE 0.7 MG/DL (0.55-1.30); POTASSIUM 3.5 MMOL/L (3.5-5.1); SODIUM 139 MMOL/L (136-145)
[2017-10-05 09:47] LABS: ALANINE AMINOTRANSFERASE 29 U/L (12-78); ALBUMIN 3.8 G/DL (3.4-5.0); ALBUMIN/GLOBULIN RATIO 0.8 (1.0-2.7); ALKALINE PHOSPHATASE 79 U/L (46-116); ASPARTATE AMINO TRANSFERASE 23 U/L (15-37); BASOPHILS % (AUTO) 1.2 % (0.0-2.0); BILIRUBIN,TOTAL 0.4 MG/DL (0.2-1.0); EOSINOPHILS % (AUTO) 0.9 % (0.0-3.0); HEMATOCRIT 45.3 % (37.0-47.0); HEMOGLOBIN 15.5 G/DL (12.0-16.0); LYMPHOCYTES % (AUTO) 38.5 % (20.0-45.0); MEAN CORPUSCULAR VOLUME 92 FL (80-99); MONOCYTES % (AUTO) 7.2 % (1.0-10.0); NEUTROPHILS % (AUTO) 52.2 % (45.0-75.0); PLATELET COUNT 324 K/UL (150-450); RED BLOOD COUNT 4.92 M/UL (4.20-5.40); RED CELL DISTRIBUTION WIDTH 11.7 % (11.6-14.8); WHITE BLOOD COUNT 10.3 K/UL (4.8-10.8)
[2017-10-05 09:50] VITALS: BP 178/79
[2017-10-05] MEDS ORDERED: ATIVAN0.5 MG ORAL (10:58)
[2017-10-05 11:09] VITALS: BP 170/74
[2017-10-05 11:10] VITALS: BP 170/74
--- NOTE | 2017-10-07 15:19 | Cardiology Report ---
APPROVED REPORT EKG Measurement Heart [id number] Normal sinus rhythm Prolonged QT Abnormal ECG
== END 2017-10-05 11:10 | disposition home or self-care (01) ==
LOC: EDBD 09:11 → EMR 10:05
DX: R51 Headache (principal); R42 Dizziness and giddiness; R10.9 Unspecified abdominal pain; I10 Essential (primary) hypertension; E11.9 Type 2 diabetes mellitus without complications
CPT/HCPCS: 36415; 80053; 83690; 84484; 85025; 93005; 96361; 96374; 96375; 99284; J2405; 96360